=== PATIENT | female | born 1965 | race Two or more races ===

== ENCOUNTER 2022-04-29 07:05 | Inpatient (IN) | payer MEDICARE, MEDICAID ==
[~2022-04-29 07:05] MED LIST: Lactated Ringers 1,000 ML IV SCH; Lidocaine 1%/Sod Bicarbonate in NS 8.4% 1 ML Syringe IDERM PRN; Morphine 8 MG, EPINEPHrine 0.3 MG, Cefuroxime 750 MG, Ketorolac 30 MG, Sodium Chloride ... PRN; Sodium Chloride 0.9% 10 ML Syringe FLUSH PRN; Vancomycin 1 GM SDV ONE
[2022-04-29] MEDS ORDERED: fentaNYL 100 MCG/2 ML SDV ONE (07:49)
[2022-04-29] MEDS ORDERED: Propofol 200 MG/20 ML SDV ONE ×4 (07:49→10:21)
[2022-04-29] MEDS ORDERED: Midazolam 1 MG/ML 2 ML SDV ONE ×2 (07:49→09:22)
[2022-04-29] MEDS ORDERED: ceFAZolin 2 GM Vial ONE ×2 (07:50→08:03)
[2022-04-29] MEDS ORDERED: Lidocaine 1% 5 ML VIAL ONE (07:50)
[2022-04-29] MEDS ORDERED: Ropivacaine 0.5% 5 MG/ML 30 ML SDV ONE (08:01)
[2022-04-29] MEDS ORDERED: EPINEPHrine 1 MG/ML SDV ONE (08:01)
[2022-04-29] MEDS ORDERED: Lactated Ringers 1,000 ML ONE ×3 (08:24→10:21)
[2022-04-29] MEDS ORDERED: ePHEDrine 50 MG/ML SDV ONE ×2 (08:30→08:33)
[2022-04-29] MEDS ORDERED: Phenylephrine HCl In 0.9% NaCl 1 MG/10 ML Vial ONE (08:37)
[2022-04-29] MEDS ORDERED: Ondansetron 4 MG/2 ML SDV ONE (09:12)
[2022-04-29] MEDS ORDERED: Dexamethasone 4 MG/ML 5 ML MDV ONE (09:12)
[2022-04-29] MEDS ORDERED: fentaNYL 100 MCG/2 ML SDV IVPUSH PRN (09:20)
[2022-04-29] MEDS ORDERED: Ondansetron 4 MG/2 ML SDV IVPUSH PRN ×2 (09:20→18:14)
[2022-04-29] MEDS ORDERED: Ketorolac 15 MG/ML SDV ONE (10:30)
[2022-04-29] MEDS ORDERED: oxyCODONE 5 MG Tab PO PRN (10:53)
[2022-04-29] MEDS ORDERED: oxyCODONE 5 MG Tab PO ONE (16:30)
[2022-04-29] MEDS ORDERED: HYDROmorphone 0.5 MG/0.5 ML Syringe IVPUSH ONE (17:45)
[2022-04-29] MEDS ORDERED: Naloxone 0.4 MG/ML SDV IVPUSH PRN (18:14)
[2022-04-29] MEDS: Cyclobenzaprine 10 MG Tab PO PRN (19:59)
[2022-04-29] MEDS: oxyCODONE 5 MG Tab PO PRN (20:47)
[2022-04-30] MEDS: oxyCODONE 5 MG Tab PO PRN ×5 (00:51→21:59)
[2022-04-30] MEDS: Sodium Chloride 0.9% 10 ML Syringe FLUSH SCH (07:21)
[2022-04-30] MEDS: Apixaban 2.5 MG Tab PO SCH ×2 (08:09→21:58)
[2022-04-30] MEDS: Cyclobenzaprine 10 MG Tab PO PRN (08:09)
[2022-04-30] MEDS ORDERED: Magnesium Hydroxide 400 MG/5 ML Susp 30 ML Cup PO PRN (12:40)
[2022-04-30] MEDS ORDERED: Bisacodyl 5 MG Tab PO PRN (12:40)
[2022-04-30] MEDS ORDERED: Sennosides 8.6 MG Tab PO PRN (12:40)
[2022-04-30] MEDS: Acetaminophen 325 MG Tab PO PRN ×2 (15:25→23:38)
[2022-04-30] MEDS ORDERED: Ketorolac 15 MG/ML SDV IVPUSH PRN (16:20)
[2022-04-30] MEDS: Docusate Sodium 100 MG Cap PO PRN (21:58)
[2022-05-01] MEDS: oxyCODONE 5 MG Tab PO PRN ×3 (04:02→13:38)
[2022-05-01] MEDS: Acetaminophen 325 MG Tab PO PRN ×2 (06:08→13:37)
[2022-05-01] MEDS: Docusate Sodium 100 MG Cap PO PRN (08:17)
[2022-05-01] MEDS: Apixaban 2.5 MG Tab PO SCH (08:17)
[2022-05-01 15:27] VITALS: BP 115/61; PULSE 64
== END 2022-05-01 14:50 | disposition home or self-care (01) | DRG 470 ==
LOC: JD.SDS 07:05 → JD.MS 19:08 → JD.SDS 04-30 13:04 → JD.MS 04-30 13:05
PROVIDERS: ADMIT Orthopaedic Surgery; ATTEND Orthopaedic Surgery
PROC: 0SRB0JZ Replacement of Left Hip Joint with Synthetic Substitute, Open Approach (ICD-10-PCS; principal; 2022-04-29)
DX: M16.11 Unilateral primary osteoarthritis, right hip (principal); Z88.0 Allergy status to penicillin; Z88.5 Allergy status to narcotic agent; Z79.899 Other long term (current) drug therapy
CPT/HCPCS: 01214; 36415; 73501-26-RT; 73501-RT; 80048; 85027; 85610; 85730; 86850; 86900; 86901; 97110-GO; 97110-GP; 97116-GP; 97161-GP; 97166-GO; 97530-GO; 97530-GP; A9270-GY; C1713; C1776; J0171; J0690; J0697; J1100; J1170; J1885; J2250; J2270; J2405; J2704; J2795; J3010; J3370; J7120

== ENCOUNTER 2024-11-09 10:50 | Emergency (ER) | payer MEDICARE, MEDICAID ==
[2024-11-09 11:15] VITALS: PULSE 61
[2024-11-09] MEDS: Diclofenac Sodium 1% Gel 100 GM Tube TOP ONE (11:44)
[2024-11-09] MEDS: Naproxen 500 MG Tab PO ONE (11:44)
[2024-11-09 13:05] VITALS: BP 170/77
== END 2024-11-09 12:25 | disposition home or self-care (01) ==
LOC: JD.ED 10:50
DX: M17.12 Unilateral primary osteoarthritis, left knee (principal); I10 Essential (primary) hypertension; Z79.899 Other long term (current) drug therapy; Z88.0 Allergy status to penicillin; Z88.6 Allergy status to analgesic agent; Z88.8 Allergy status to other drugs, medicaments and biological substances
CPT/HCPCS: 73562; 99283; A9270; 99284